=== PATIENT | male | born 1965 | race Caucasian/White ===

== ENCOUNTER 2018-05-16 18:32 | Emergency (ER) | payer OTHER | END 2018-05-17 02:30 | disposition home or self-care (01) | LOC: FTE 05-17 02:30 | DX: S89.91XA Unspecified injury of right lower leg, initial encounter (principal); S69.92XA Unspecified injury of left wrist, hand and finger(s), initial encounter; S99.911A Unspecified injury of right ankle, initial encounter; I25.10 Atherosclerotic heart disease of native coronary artery without angina pectoris; W01.0XXA Fall on same level from slipping, tripping and stumbling without subsequent striking against object, initial encounter; Y92.89 Other specified places as the place of occurrence of the external cause; Z79.82 Long term (current) use of aspirin; Z95.1 Presence of aortocoronary bypass graft | CPT/HCPCS: 73110; 73110-LT; 73562; 73610-RT; 99284-25 ==